=== PATIENT | female | born 1970 | race African-American/Black ===

== ENCOUNTER 2020-09-26 07:05 | Emergency (ER) | payer OTHER, BC ==
[~2020-09-26] VITALS: Ht 175.3 cm; Wt 68.0 kg
[2020-09-26 07:09] VITALS: BP 143/86
[2020-09-26] MEDS ORDERED: LIDOCAINE 1%/EPI 1:100,000 10 ML VIAL IJ ONE (07:30)
[2020-09-26] MEDS ORDERED: TETANUS, DIPHTHERIA, PERTUSSIS VAC/PF 0.5ML (>7YR OLD) IM ONE (07:30)
[2020-09-26] MEDS ORDERED: LIDOCAINE HCL/EPINEPHRINE 1%-EPI 1:100,000 20 ML VIAL INFIL SCH (07:30)
[2020-09-26] MEDS ORDERED: BACITRACIN ZINC OINT UDPKT TOP ONE (07:30)
[2020-09-26] MEDS ORDERED: ACETAMINOPHEN 325MG TABLET PO ONE (07:30)
== END 2020-09-26 09:22 | disposition home or self-care (01) ==
LOC: ER 07:05
DX: S01.81XA Laceration without foreign body of other part of head, initial encounter (principal); V49.49XA Driver injured in collision with other motor vehicles in traffic accident, initial encounter; Y93.89 Activity, other specified; Y92.89 Other specified places as the place of occurrence of the external cause; Y99.8 Other external cause status
CPT/HCPCS: 12013; 70450; 90471; 90715; 99284; A4217; J3490; Z7610